=== PATIENT | male | born 1995 | race Caucasian/White ===

== ENCOUNTER 2016-12-10 22:21 | Emergency (ER) | payer OTHER ==
[~2016-12-10 22:21] MED LIST: ACCUTANE10 MG PO
[2016-12-10] MEDS ORDERED: NO HOME MEDICATION XX (23:39)
== END 2016-12-11 01:32 ==
LOC: EDMED 22:21
PROC: 0HQ1XZZ Repair Face Skin, External Approach (ICD-10-PCS; principal; 2016-12-10)
DX: S01.111A Laceration without foreign body of right eyelid and periocular area, initial encounter (principal); Z23 Encounter for immunization; F17.200 Nicotine dependence, unspecified, uncomplicated; W21.03XA Struck by baseball, initial encounter; Y93.64 Activity, baseball; Y92.320 Baseball field as the place of occurrence of the external cause; Y99.8 Other external cause status